=== PATIENT | female | born 1955 | race Caucasian/White ===

== ENCOUNTER → 2017-05-05 | Outpatient (CLI) | payer BC ==
--- NOTE | 2017-05-05 14:38 | MM ---
Reason for exam: clinical finding. Last mammogram was performed 3 years and 8 months ago. History: Patient is postmenopausal and has history of endometrial cancer at age 25. Family history of breast cancer in uncle. Indicated problem(s): pain in the right breast. Physical Findings: Nurse did not find any significant physical abnormalities on exam. MG 3D Diag Mammo W/Cad JESSE Bilateral CC and MLO view(s) were taken. Prior study comparison: September 16, 2013, bilateral digital screening mammo w/CAD. April 20, 2012, bilateral digital screening mammo w/CAD. There are scattered fibroglandular densities. Finding: There are grouped calcifications in the right breast. No significant changes in finding since September 16, 2013 and April 20, 2012. These results were verbally communicated with the patient and result sheet given to the patient on 05/05/17. ASSESSMENT: Benign, BI-RAD 2 RECOMMENDATION: Routine screening mammogram of both breasts in 1 year. Manage patient on a clinical basis.
== END | disposition home or self-care (01) ==
LOC: RADMAMWWP 13:32
PROVIDERS: ATTEND Family Medicine
DX: N64.4 Mastodynia (principal)
CPT/HCPCS: G0204; G0279

== ENCOUNTER 2017-06-24 14:22 | Emergency (ER) | payer BC ==
[2017-06-24 14:37] VITALS: BP 118/75; RESP 18; TEMP 97.8
--- NOTE | 2017-06-24 14:54 | ED ---
General Adult HPI - General Chief complaint: Extremity Injury, Lower Stated complaint: fall/foot injury Time Seen by Provider: 06/24/17 14:36 Source: patient, RN notes reviewed Mode of arrival: wheelchair Limitations: no limitations - History of Present Illness Initial comments: 61-year-old female presents to the emergency department with a chief complaint of left foot pain. Patient states she was walking through her yard and she tripped and hurt her left foot. Patient was able to have pain along the lateral aspect of foot. Patient states in the head. Patient states the fall. Patient states she did state that both knees in the way down. Patient states that she is not currently having any other symptoms. Patient denies any fever chills with this. Patient denies any recent fever, chills, shortness of breath, chest pain, back pain, abdominal pain, nausea vomiting, numbness or tingling, dysuria or hematuria, constipation or diarrhea, headaches or visual changes, or any other current symptoms. - Related Data Home Medications Medication Instructions Recorded Confirmed Citalopram Hydrobromide [CeleXA] 1 tab PO DAILY 11/08/15 06/24/17 LORazepam [Ativan] 1 tab PO Q8H 11/08/15 06/24/17 Montelukast [Singulair] 1 tab PO DAILY 11/08/15 06/24/17 Omeprazole [PriLOSEC] 1 tab PO DAILY 11/08/15 06/24/17 Previous Rx's Medication Instructions Recorded Doxycycline Monohydrate [Monodox] 100 mg PO Q12HR #20 cap 11/08/15 Allergies Allergy/AdvReac Type Severity Reaction Status Date / Time latex AdvReac Rash/Hives Verified 06/24/17 14:37 Penicillins AdvReac Itching Verified 06/24/17 14:37 Review of Systems ROS Statement: Those systems with pertinent positive or pertinent negative responses have been documented in the HPI. ROS Other: All systems not noted in ROS Statement are negative. Past Medical History Past Medical History: Asthma, GERD/Reflux, Hyperlipidemia Additional Past Medical History / Comment(s): arthritis History of Any Multi-Drug Resistant Organisms: None Reported Past Surgical History: Hysterectomy, Orthopedic Surgery, Tonsillectomy Past Psychological History: Depression Smoking Status: Current some day smoker Past Alcohol Use History: Occasional Past Drug Use History: None Reported General Exam - General Exam Comments Initial Comments: General: The patient is awake and alert, in no distress, and does not appear acutely ill. Neck: The neck is supple, there is no tenderness. Cardiovascular: There is a regular rate and rhythm. No murmur, rub or gallop is appreciated. Respiratory: Lungs are clear to auscultation, respirations are non-labored, breath sounds are equal. No wheezes, stridor, rales, or rhonchi. Musculoskeletal: Sensation intact with 2+ pulses. Left extremity. Full range of motion of left knee left ankle and left foot. Tenderness along the fourth and fifth metatarsals. 5 out of 5 muscle strength testing. Neurological: CN II-XII intact, There are no obvious motor or sensory deficits. Coordination appears grossly intact. Speech is normal. Skin: Skin is warm and dry and no rashes or lesions are noted. Psychiatric: Normal mood and affect. Limitations: no limitations Course Vital Signs 06/24/17 14:35 Temperature 97.8 F Pulse Rate 71 Respiratory 18 Rate Blood Pressure 118/75 O2 Sat by Pulse 96 Oximetry Medical Decision Making - Medical Decision Making 61-year-old female presents emergency Department chief complaint of left foot pain. At this time patient underwent x-rays. This time x-rays reviewed and negative. We discussed ice Motrin Tylenol. We discussed temporal salt than all patient's questions. She stated that she understood and she is agreeable to plan. All questions have been answered. She will be discharged home. - Radiology Data Radiology results: report reviewed, image reviewed Disposition Clinical Impression: Sprain of left foot Disposition: HOME SELF-CARE Condition: Stable Instructions: Foot Sprain (ED) Additional Instructions: Please use medication as discussed. Please follow up with family doctor if symptoms have not improved over the next two days. Please return to the emergency room if your symptoms increase or worsen or for any other concerns. Referrals: Hoa Stoner MD [Primary Care Provider] - 1-2 days Time of Disposition: 15:39
--- NOTE | 2017-06-24 15:33 | XR ---
EXAMINATION TYPE: XR foot complete LT DATE OF EXAM: 06/24/2017 COMPARISON: NONE HISTORY: Pain left foot slip and fall TECHNIQUE: Three-view left foot FINDINGS: No acute fractures are evident. Joint spaces appear preserved. Soft tissues are unremarkabl e. Follow-up exam can be performed 7-10 days from acute trauma for continued pain. IMPRESSION: 1. No acute osseous abnormality.
[2017-06-24 15:47] VITALS: PULSE 72
== END 2017-06-24 15:40 | disposition home or self-care (01) ==
LOC: EC 14:22
DX: S93.602A Unspecified sprain of left foot, initial encounter (principal); J45.909 Unspecified asthma, uncomplicated; K21.9 Gastro-esophageal reflux disease without esophagitis; F32.9 Major depressive disorder, single episode, unspecified; F17.200 Nicotine dependence, unspecified, uncomplicated; Z79.899 Other long term (current) drug therapy; Z88.0 Allergy status to penicillin; Z91.040 Latex allergy status; W01.0XXA Fall on same level from slipping, tripping and stumbling without subsequent striking against object, initial encounter; Y92.096 Garden or yard of other non-institutional residence as the place of occurrence of the external cause; Y93.01 Activity, walking, marching and hiking
CPT/HCPCS: 99283

== ENCOUNTER → 2019-01-14 | Outpatient (CLI) | payer BC ==
--- NOTE | 2019-01-14 09:06 | US ---
EXAMINATION TYPE: US abdomen complete DATE OF EXAM: 01/14/2019 COMPARISON: NONE CLINICAL HISTORY: 63-year-old female R10.13 Epigastric pain. Pt states change in bowel habits, lower ABD pain FINDINGS: EXAM MEASUREMENTS: Liver Length: 16.7 cm Gallbladder Wall: 0.2 cm CBD: 0.5 cm Spleen: 9.9 cm Right Kidney: 10.5 x 4.4 x 4.4 cm Left Kidney: 12.3 x 4.9 x 5.1 cm [place] [employer] Operator notes:Pt very gassy, technically difficult exam Pancreas: Body wnl, portions of the head and tail are obscured by overlying bowel gas Liver: Slightly heterogeneous, benign cyst right lobe= 1.2 x 1.2 x 1.4 cm Gallbladder: wnl Evidence for sonographic Rg's sign: No CBD: wnl Spleen: wnl Right Kidney: wnl, lower pole gassed out. No hydronephrosis. Left Kidney: No hydronephrosis Upper IVC: wnl Abd Aorta: wnl IMPRESSION: 1. Some technical limitations due to excessive bowel gas. 2. Slightly heterogeneous appearance to the liver could be on a technical basis or could reflect unde rlying nonspecific hepatocellular disease.
== END ==
LOC: RADUSWWP 07:03
PROVIDERS: ATTEND Family Medicine
DX: R93.2 Abnormal findings on diagnostic imaging of liver and biliary tract (principal)
CPT/HCPCS: 76700

== ENCOUNTER 2019-03-27 07:44 | Day surgery (SDC) | payer BC ==
[2019-03-22 12:00] VITALS: BMI 31.1
[~2019-03-27 07:44] MED LIST: LACTATED RINGERS 1,000 ML IV SCH; LIDOCAINE 1% 20 ML VIAL (10MG/ML) FOR IV START INTRADERMA PRN
--- NOTE | 2019-03-27 07:56 | P.GSHP ---
History of Present Illness H&P Date: 03/27/19 CHIEF COMPLAINT: Colon screen HISTORY OF PRESENT ILLNESS: The patient is a 63-year-old female who presents for colon screen. Lower endoscopy was offered for further evaluation and management. PAST MEDICAL HISTORY: Please see list. PAST SURGICAL HISTORY: Please see list. MEDICATIONS: Please see list. ALLERGIES: Please see list. SOCIAL HISTORY: No illicit drug use FAMILY HISTORY: No reports of Crohn disease or ulcerative colitis. REVIEW OF ORGAN SYSTEMS: CONSTITUTIONAL: No reports of fevers or chills. PHYSICAL EXAM: VITAL SIGNS: Stable GENERAL: Well-developed pleasant in no acute distress. HEENT: No scleral icterus. Extraocular movements grossly intact. Moist buccal mucosa. NECK: Supple without lymphadenopathy. CHEST: Unlabored respirations. Equal bilateral excursions. CARDIOVASCULAR: Regular rate and rhythm. Distal 2+ pulses. ABDOMEN: Soft, nontender, nondistended. MUSCULOSKELETAL: No clubbing, cyanosis, or edema. ASSESSMENT: 1. Colon screen. PLAN: 1. Recommend proceeding with a lower endoscopy Past Medical History Past Medical History: Asthma, Cancer, GERD/Reflux, Hyperlipidemia, Hypertension, Osteoarthritis (OA) Additional Past Medical History / Comment(s): hx. cervical cancer 40 yrs. ago, change in bowel habits,constipation over last 6 months History of Any Multi-Drug Resistant Organisms: None Reported Past Surgical History: Hysterectomy, Joint Replacement, Orthopedic Surgery, Tonsillectomy Additional Past Surgical History / Comment(s): ORIF left wrist, left hip replaced, arthroscopy knee Past Anesthesia/Blood Transfusion Reactions: Previous Problems w/ Anesthesia Additional Past Anesthesia/Blood Transfusion Reaction / Comment(s): states needs minimal anesthesia Smoking Status: Current every day smoker Medications and Allergies Home Medications Medication Instructions Recorded Confirmed Type Citalopram Hydrobromide [CeleXA] 20 mg PO DAILY 11/08/15 03/22/19 History LORazepam [Ativan] 0.5 mg PO Q8H PRN 11/08/15 03/22/19 History Montelukast [Singulair] 10 mg PO DAILY 11/08/15 03/22/19 History Omeprazole [PriLOSEC] 20 mg PO DAILY 11/08/15 03/22/19 History Albuterol Inhaler [Ventolin Hfa 1 - 2 puff INHALATION RT-Q6H PRN 03/22/19 03/22/19 History Inhaler] Bp Med(Unknown Name & Dose) 1 tab PO HS 03/22/19 03/22/19 History buPROPion [Wellbutrin] 75 mg PO DAILY 03/22/19 03/22/19 History Allergies Allergy/AdvReac Type Severity Reaction Status Date / Time latex AdvReac Rash/Hives Verified 03/22/19 10:57
[2019-03-27 08:09] VITALS: TEMP 97.5
[2019-03-27] MEDS ORDERED: PROPOFOL 10 MG/ML 20 ML VIAL IV ONE (08:34)
--- NOTE | 2019-03-27 09:01 | P.PCN ---
Date of Procedure: 03/27/19 Description of Procedure: PREOPERATIVE DIAGNOSIS: Colonoscopy screening. Family history of colon cancer POSTOPERATIVE DIAGNOSIS: Colonoscopy screening. Family history of colon cancer OPERATION: Colonoscopy to the ileocecal valve and appendiceal orifice. SURGEON: Urszula Cano MD. ANESTHESIA: MAC. INDICATIONS: The patient is a 63-year-old female who presents for colonoscopy screening. Last colonoscopy 10 years ago. Benefits and risks were described and informed consent was obtained. DESCRIPTION OF PROCEDURE: The patient had undergone Suprep. She had been brought into the operating room and laid in the left lateral decubitus position. After adequate intravenous sedation, the rectum was examined with 2% lidocaine jelly. No external hemorrhoids were encountered. The rectal tone was within normal limits. No lesions were palpated in the rectal vault. An Olympus colonoscope was advanced u ntil the ileocecal valve and appendiceal orifice were clearly viewed. The prep was excellent with clear visualization of the mucosal folds. The scope was removed with visualization of each mucosal fold. No scattered diverticulosis was encountered. No colonic polyps were found. No evidence of focal colitis was found. Retroflexion of the scope demonstrated grade 1 internal hemorrhoids without active bleeding or inflammation. The colon was desufflated. The patient had tolerated the procedure well. Withdrawal time was over 6 minutes. FINDINGS: Aronchick preparation quality scale 1 (1-5) Internal hemorrhoids, grade 1 No external prolapsed hemorrhoids. No arteriovenous malformations. No adenomatous polyps. No focal colitis. No sigmoid diverticulosis RECOMMENDATIONS: Lower endoscopy in 5 years, 2023 Plan - Discharge Summary Discharge Rx Participant: Yes New Discharge Prescriptions: No Action Omeprazole [PriLOSEC] 20 mg PO DAILY Montelukast [Singulair] 10 mg PO DAILY LORazepam [Ativan] 1 mg PO Q8H PRN PRN Reason: Anxiety Citalopram Hydrobromide [CeleXA] 20 mg PO DAILY Albuterol Inhaler [Ventolin Hfa Inhaler] 1 - 2 puff INHALATION RT-Q6H PRN PRN Reason: Dyspnea buPROPion [Wellbutrin] 100 mg PO DAILY Cyclobenzaprine [Flexeril] 5 mg PO HS PRN PRN Reason: Muscle Spasm Pravastatin Sodium [Pravachol] 20 mg PO HS Discharge Medication List Citalopram Hydrobromide [CeleXA] 20 mg PO DAILY 11/08/15 [History] LORazepam [Ativan] 1 mg PO Q8H PRN 11/08/15 [History] Montelukast [Singulair] 10 mg PO DAILY 11/08/15 [History] Omeprazole [PriLOSEC] 20 mg PO DAILY 11/08/15 [History] Albuterol Inhaler [Ventolin Hfa Inhaler] 1 - 2 puff INHALATION RT-Q6H PRN 02/28 02/15 [History] buPROPion [Wellbutrin] 100 mg PO DAILY 03/22/19 [History] Cyclobenzaprine [Flexeril] 5 mg PO HS PRN 03/27/19 [History] Pravastatin Sodium [Pravachol] 20 mg PO HS 03/27/19 [History] Follow up Appointment(s)/Referral(s): Urszula Cano MD [STAFF PHYSICIAN] - As Needed Patient Instructions/Handouts: *[facility] - (Anesthesia) Endoscopy Discharge Instructions, Colonoscopy (DC) Activity/Diet/Wound Care/Special Instructions: Repeat colonoscopy 5 years, 2023 Discharge Disposition: HOME SELF-CARE
[2019-03-27 09:17] VITALS: BP 122/78; PULSE 57; RESP 18
== END 2019-03-27 09:38 | disposition home or self-care (01) ==
LOC: ORWHC2ENDO 07:44
PROVIDERS: ATTEND Surgery Plastic and Reconstructive Surgery
DX: K59.00 Constipation, unspecified (principal); J45.909 Unspecified asthma, uncomplicated; K64.0 First degree hemorrhoids; K21.9 Gastro-esophageal reflux disease without esophagitis; E78.5 Hyperlipidemia, unspecified; I10 Essential (primary) hypertension; M19.90 Unspecified osteoarthritis, unspecified site; F17.200 Nicotine dependence, unspecified, uncomplicated; Z85.41 Personal history of malignant neoplasm of cervix uteri; Z91.040 Latex allergy status; Z80.0 Family history of malignant neoplasm of digestive organs
CPT/HCPCS: 45378; J2704

== ENCOUNTER → 2019-05-20 | Outpatient (CLI) | payer BC ==
--- NOTE | 2019-05-21 13:19 | MM ---
Reason for exam: screening (asymptomatic). Last mammogram was performed 2 years ago. History: Patient is postmenopausal and has history of endometrial cancer at age 25. Family history of breast cancer in uncle at age 60. Physical Findings: A clinical breast exam by your physician is recommended on an annual basis and results should be correlated with mammographic findings. MG 3D Screening Mammo W/Cad Bilateral CC and MLO view(s) were taken. Prior study comparison: May 05, 2017, bilateral MG 3d diag mammo w/cad JESSE. September 16, 2013, bilateral digital screening mammo w/CAD. There are scattered fibroglandular densities. Benign appearing bilateral calcifications. No suspicious abnormality. No significant changes when compared with prior studies. ASSESSMENT: Benign, BI-RAD 2 RECOMMENDATION: Routine screening mammogram of both breasts in 1 year.
== END | disposition home or self-care (01) ==
LOC: RADMAMWWP 06:58
PROVIDERS: ATTEND Family Medicine
DX: Z12.31 Encounter for screening mammogram for malignant neoplasm of breast (principal)
CPT/HCPCS: 77063; 77067

== ENCOUNTER → 2019-07-23 | Outpatient (CLI) | payer BC ==
--- NOTE | 2019-07-23 16:21 | XR ---
EXAMINATION TYPE: XR ankle limited LT DATE OF EXAM: 07/23/2019 CLINICAL HISTORY: Pain and swelling over the medial malleolus. TECHNIQUE: Frontal and lateral images of the left ankle are obtained. COMPARISON: None. FINDINGS: There is no acute fracture/dislocation evident in the left ankle. Talar dome appears intac t and unremarkable. The ankle mortise appears within normal limits. Tears focal soft tissue swelling around the mid and low ankle joint overlying the medial malleolus and region of the deltoid ligament. No radiopaque foreign body. IMPRESSION: Medial ankle soft tissue swelling without acute fracture or dislocation in the left ankle . MRI could assess for ligamentous or tendinous injury.
== END | disposition home or self-care (01) ==
LOC: RADXRMAIN 14:35
PROVIDERS: ATTEND Family Medicine
DX: M25.472 Effusion, left ankle (principal)

== ENCOUNTER → 2019-12-02 | Outpatient (CLI) | payer OTHER ==
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
== END | disposition home or self-care (01) ==
LOC: RADCTMAIN 11:24
PROVIDERS: ATTEND Family Medicine
DX: R51 Headache (principal)
CPT/HCPCS: 70470; Q9967

== ENCOUNTER → 2020-11-09 | Outpatient (CLI) | payer MEDICARE, BC ==
--- NOTE | 2020-11-11 09:49 | MM ---
Reason for exam: screening (asymptomatic). Last mammogram was performed 1 year and 6 months ago. History: Patient is postmenopausal and has history of endometrial cancer at age 25. Family history of breast cancer in uncle at age 60. Physical Findings: A clinical breast exam by your physician is recommended on an annual basis and results should be correlated with mammographic findings. MG 3D Screening Mammo W/Cad Bilateral CC and MLO view(s) were taken. Prior study comparison: May 20, 2019, bilateral MG 3d screening mammo w/cad. May 05, 2017, bilateral MG 3d diag mammo w/cad JESSE. There are scattered fibroglandular densities. Tiny grouped punctate calcifications on the right are unchanged. No significant changes when compared with prior studies. ASSESSMENT: Negative, BI-RAD 1 RECOMMENDATION: Routine screening mammogram of both breasts in 1 year.
== END | disposition home or self-care (01) ==
LOC: RADMAMWWP 15:22
PROVIDERS: ATTEND Family Medicine
DX: Z12.31 Encounter for screening mammogram for malignant neoplasm of breast (principal)
CPT/HCPCS: 77063; 77067

== ENCOUNTER → 2020-11-30 | Outpatient (CLI) | payer BC ==
--- NOTE | 2020-11-30 15:24 | BD ---
EXAMINATION TYPE: Axial Bone Density DATE OF EXAM: 11/30/2020 COMPARISON: 04.20.2012 CLINICAL HISTORY: 65 YR OLD FEMALE....ICD-10 CODE: Z78.0 MENOPAUSAL STATE Height: 68.5 Weight: 225 FRAX RISK QUESTIONS: Glucocorticoids (More than 3mos): YES (Ex: prednisone, prednisolone, methylprednisolone, dexamethasone, and hydrocortisone). History of Fracture in Adulthood: YES Current Tobacco Use: YES RISK FACTORS HISTORY OF: HX OF FX TO STERNUM, KNEE, CLAVICLE AT AGE 63 History of Wrist Fracture: LT WRIST FX...AT AGE 63 Surgery to LT HIP...THR Postmenopausal woman: HYST AT AGE 25, UNSURE OF WHEN MENOPAUSE HAPPENED Hyperparathyroidism: NO Adrenal Insufficiency: NO MEDICATIONS: Prednisone or other steroids: YES, FOR ASTHMA PREDNISONE AND INHALERS FOR MANY YRS Additional Medications: ATIVAN, CHANTAX FOR SMOKING , REFLUX MEDS, VIT D AND ZINC, CALCIUM , BP MEDS Additional History: REFLUX, EXAM MEASUREMENTS: Bone mineral densitometry was performed using the [employer] System. Bone mineral density as measured about the Lumbar spine is: ----- L1-L4(G/cm2): 1.170 T Score Values are as follows: ----- L1: -1.1 ----- L2: -0.3 ----- L3: 0.5 ----- L4: 0.1 ----- L1-L4: -0.1 Bone mineral density has: Increased 6.4% SINCE STUDY OF 04.20.2012 Bone mineral density about the R hip (g/cm2): 0.879 T Score values are as follows: -----R Neck: -1.1 -----R Total: -1.0 Bone mineral density has: Decreased -10.5% SINCE THE STUDY OF 04.20.2012 FRAX%s: THERE IS A 19.8% CHANCE FOR A MAJOR OSTEOPOROTIC FX AND A 3.0% FOR HIP......PROBABILITY FOR FX IN 10 YRS TIME IMPRESSION: No evidence for osteoporosis or osteopenia. NOTE: T-SCORE=SD OF THE YOUNG ADULT MEAN.
== END | disposition home or self-care (01) ==
LOC: RADBDWWP 12:23
PROVIDERS: ATTEND Family Medicine
DX: Z78.0 Asymptomatic menopausal state (principal)
CPT/HCPCS: 77080

== ENCOUNTER 2021-09-30 14:43 | Emergency (ER) | payer MEDICARE, BC ==
--- NOTE | 2021-09-30 16:48 | ED ---
URI HPI - General Chief Complaint: Upper Respiratory Infection Stated Complaint: Covid +, wants BAM Time Seen by Provider: 09/30/21 16:21 Source: patient, RN notes reviewed Mode of arrival: ambulatory Limitations: no limitations - History of Present Illness Initial Comments: Patient is a 65-year-old female with history of asthma, hypertension, presenting to the emergency department requesting monoclonal antibodies. Patient tested positive for: Arash 4 days ago, her symptoms began about 7 days ago. She's been having the typical viral type symptoms just cough, congestion, body aches, fatigue and chills. She has been taking Tylenol for his symptoms. She has not been vaccinated against Covid. She denies any chest pain or shortness of breath. She's been occasionally using her inhaler. Patient has no further complaints today. Her vital signs are stable upon arrival. - Related Data Home Medications Medication Instructions Recorded Confirmed Acetaminophen-Codeine 300-30mg 1 tab PO HS PRN 09/30/21 09/30/21 [Tylenol w/codeine #3] Allergies Allergy/AdvReac Type Severity Reaction Status Date / Time latex AdvReac Rash/Hives Verified 09/30/21 18:14 Review of Systems ROS Statement: Those systems with pertinent positive or pertinent negative responses have been documented in the HPI. ROS Other: All systems not noted in ROS Statement are negative. Past Medical History Past Medical History: Asthma, Cancer, GERD/Reflux, Hyperlipidemia, Hypertension, Osteoarthritis (OA) Additional Past Medical History / Comment(s): hx. cervical cancer 40 yrs. ago, change in bowel habits,constipation over last 6 months History of Any Multi-Drug Resistant Organisms: None Reported Past Surgical History: Hysterectomy, Joint Replacement, Orthopedic Surgery, Tonsillectomy Additional Past Surgical History / Comment(s): ORIF left wrist, left hip replaced, arthroscopy knee Past Anesthesia/Blood Transfusion Reactions: Previous Problems w/ Anesthesia Additional Past Anesthesia/Blood Transfusion Reaction / Comment(s): states needs minimal anesthesia Past Psychological History: Depression Smoking Status: Never smoker Past Alcohol Use History: Occasional Past Drug Use History: None Reported General Exam - General Exam Comments Initial Comments: GENERAL: Patient is well-developed and well-nourished. Patient is nontoxic and in no acute distress. HEAD: Atraumatic, normocephalic. EYES: Pupils equal round and reactive to light, extraocular movements intact, sclera anicteric, conjunctiva are normal. Eyelids were unremarkable. ENT: Oropharynx clear without exudates. Moist mucous membranes. NECK: Normal range of motion, supple without lymphadenopathy or JVD. LUNGS: Unlabored respirations. Breath sounds clear to auscultation bilaterally and equal. No wheezes rales or rhonchi. HEART: Regular rate and rhythm without murmurs, rubs or gallops. ABDOMEN: Soft, nontender, normoactive bowel sounds. No guarding, no rebound. No masses appreciated. MUSCULOSKELETAL: Normal extremities with adequate strength and normal range of motion, no pitting or edema. No clubbing or cyanosis. NEUROLOGICAL: Patient is alert and oriented x 3. SKIN: Warm, Dry, normal turgor, no rashes or lesions noted. Limitations: no limitations Course Vital Signs 09/30/21 14:48 Temperature 98.6 F Pulse Rate 78 Respiratory 20 Rate Blood Pressure 143/75 O2 Sat by Pulse 94 L Oximetry Medical Decision Making - Medical Decision Making Patient is a 65-year-old female history of asthma, hypertension, presenting for monoclonal antibodies. Patient tested positive for Covid 4 days ago, symptoms began 7 days ago. She has not been vaccinated against Covid. Her exam is unremarkable, vital signs are stable. She did receive monoclonal antibodies without adverse side effects. Patient can continue to use her inhaler as needed for any shortness of breath or cough. She can continue with Tylenol for body aches and chills. She is stable for discharge. Disposition Clinical Impression: COVID-19 Disposition: HOME SELF-CARE Condition: Stable Instructions (If sedation given, give patient instructions): Coronavirus Disease 2019 (COVID-19) Additional Instructions: Please return to the Emergency Department if symptoms worsen or any other concerns. Recommend alternating between Tylenol and ibuprofen for bodyaches, fever or chills. Increase your fluid intake. Continue with your inhaler as needed for shortness of breath or cough. Follow-up with your primary care. Is patient prescribed a controlled substance at d/c from ED?: No Referrals: Raul Philippe MD [Primary Care Provider] - 1-2 days Time of Disposition: 19:15
[2021-09-30] MEDS ORDERED: SODIUM CHLORIDE 0.9% 50 ML IVPB ONE (17:00)
[2021-09-30] MEDS ORDERED: SOTROVIMAB (EUA) 500 MG in SODIUM CHLORIDE 0.9% 100 ML IVPB ONE (17:00)
[2021-09-30 19:28] VITALS: RESP 18
[2021-09-30 19:29] VITALS: BP 127/58; PULSE 60; TEMP 98
== END 2021-09-30 19:29 | disposition home or self-care (01) ==
LOC: EC 14:43
DX: U07.1 COVID-19 (principal); J45.909 Unspecified asthma, uncomplicated; K21.9 Gastro-esophageal reflux disease without esophagitis; E78.5 Hyperlipidemia, unspecified; I10 Essential (primary) hypertension; M19.90 Unspecified osteoarthritis, unspecified site; F32.A Depression, unspecified; Z91.040 Latex allergy status; Z85.41 Personal history of malignant neoplasm of cervix uteri; Z90.710 Acquired absence of both cervix and uterus; Z96.642 Presence of left artificial hip joint
CPT/HCPCS: 99283; 96360; Q0247

== ENCOUNTER → 2022-11-21 | Outpatient (CLI) | payer MEDICARE, BC ==
--- NOTE | 2022-11-22 08:47 | MM ---
Reason for Exam: Screening (asymptomatic). Last mammogram was performed 2 year(s) and 0 month(s) ago. Patient History: Menarche at age 14. First Full-Term at age 23. Hysterectomy at age 25. Postmenopausal. Maternal uncle had breast cancer, age 60. Risk Values: Abiola 5 year model risk: 1.4%. NCI Lifetime model risk: 4.8%. Prior Study Comparison: 05/05/2017 Bilateral Diagnostic Mammogram, [facility]. 05/20/2019 Bilateral Screening Mammogram, [facility]. 11/09/2020 Bilateral Screening Mammogram, [facility]. Tissue Density: There are scattered fibroglandular densities. Findings: Analyzed By CAD. There is no suspicious group of microcalcifications or new suspicious mass in either breast. Overall Assessment: Negative, BI-RAD 1 Management: Screening Mammogram of both breasts in 1 year. A clinical breast exam by your physician is recommended on an annual basis and results should be correlated with mammographic findings. Electronically signed and approved by: Anthony Michaels M.D. Radiologis
== END | disposition home or self-care (01) ==
LOC: RADMAMWWP 11:33
PROVIDERS: ATTEND Family Medicine
DX: Z12.31 Encounter for screening mammogram for malignant neoplasm of breast (principal); Z78.0 Asymptomatic menopausal state; Z80.3 Family history of malignant neoplasm of breast
CPT/HCPCS: 77063; 77067

== ENCOUNTER → 2023-02-24 | Outpatient (CLI) | payer MEDICARE, BC ==
--- NOTE | 2023-02-24 11:59 | CA ---
Transthoracic Echo Report Name: Sulema Pickett Age: 67 Gender: F : 1955 Exam Date: 02/24/2023 10:03 Exam Location: [place] [facility] Ht (in): 70 Wt (lb): 230 Ordering Physician: Raul Philippe MD Attending/Referring Phys: Jose Martin ROLDAN Junk Dealer Daniella Vargas RDCS Procedure CPT: Indications: R94.31 Cardiac Hx: Technical Quality: Fair Contrast 1: Total Dose (mL): Contrast 2: Total Dose (mL): MEASUREMENTS (Male / Female) Normal Values 2D ECHO LV Diastolic Diameter PLAX 4.8 cm 4.2 - 5.9 / 3.9 - 5.3 cm LV Systolic Diameter PLAX 3.3 cm IVS Diastolic Thickness 1.4 cm 0.6 - 1.0 / 0.6 - 0.9 cm LVPW Diastolic Thickness 1.1 cm 0.6 - 1.0 / 0.6 - 0.9 cm LV Relative Wall Thickness 0.5 RV Internal Dim ED PLAX 3.7 cm LA Volume 58.9 cm??? 18 - 58 / 22 - 52 cm??? M-MODE Aortic Root Diameter MM 3.5 cm LA Systolic Diameter MM 4.4 cm LA Ao Ratio MM 1.2 AV Cusp Separation MM 2.3 cm DOPPLER AV Peak Velocity 168.5 cm/s AV Peak Gradient 11.4 mmHg AV Mean Velocity 105.1 cm/s AV Mean Gradient 5.1 mmHg AV Velocity Time Integral 30.4 cm LVOT Peak Velocity 124.0 cm/s LVOT Peak Gradient 6.2 mmHg LVOT Velocity Time Integral 23.4 cm MV Area PHT 2.8 cm??? Mitral E Point Velocity 56.4 cm/s Mitral A Point Velocity 92.4 cm/s Mitral E to A Ratio 0.6 MV Deceleration Time 270.3 ms MV E' Velocity 6.3 cm/s Mitral E to MV E' Ratio 8.9 TR Peak Velocity 252.8 cm/s TR Peak Gradient 25.6 mmHg Right Ventricular Systolic Press 29.3 mmHg FINDINGS Left Ventricle Moderately increased left ventricular wall thickness. Left ventricular cavity size normal. Normal left ventricular systolic function with no obvious regional wall motion abnormalities. Left ventricular ejection fraction is estimated at 55-60 %. Right Ventricle Mild right ventricular dilatation. Right ventricular systolic pressure within normal limits. Right Atrium Normal right atrial size. Left Atrium Mildly increased left atrial volume. Mildly increased left atrial area. Mitral Valve Structurally normal mitral valve. No mitral stenosis. Mild mitral regurgitation. Aortic Valve Trileaflet aortic valve. No aortic valve stenosis or regurgitation. Tricuspid Valve Structurally normal tricuspid valve. Mild tricuspid regurgitation. Pulmonic Valve Trace pulmonic regurgitation. Pericardium No pericardial effusion. Aorta Normal size aortic root and proximal ascending aorta. CONCLUSIONS Normal LV systolic function Previewed by: Dr. Johnathon Tijerina MD (Electronically Signed) Final Date: 24 February 2023 11:59
--- NOTE | 2023-02-24 19:49 | CA ---
Stress Echo Report Sulema Pickett Age: 67 Gender: F : 1955 Exam Date: 02/24/2023 09:46 Exam Location: [place] Stress Ht (in): 70 Wt (lb): 230 Ordering Physician: Raul Philippe MD Referring Physician: Jose Martin ROLDAN Compression Molding Machine Setter: TIMOTHY Technologist Procedure CPT: Indication: R94.31 ICD-9 Codes: Rhythm: Patient History: Cardiac Medications: Medications in past 24 hours: Contrast: Stress Results Protocol: Ced Total dose(mL): Exercise Duration (min:sec): 5:[address] Depression (mm): Angina Score: Cruz Score: METS: 7.1 Resting HR: 77 Resting BP: 135 / 65 Peak HR: 131 Peak BP: / 102 Max Predicted HR: 153 86 % Max Predicted HR Target HR: 130 Double Product: Stress Summary: BP Response: Reason for Termination: Reached target heart rate or work-load Cardiac Symptoms: very short of breath/dizzy ECG Analysis Resting ECG: Stress ECG: Arrhythmia: Echo Analysis Resting Echo: Peak Echo Analysis: MEASUREMENTS (Male/Female) Normal Values CONCLUSIONS Excellent exercise tolerance Normal EKG and echo in response to exercise Dr. Johnathon Tijerina MD (Electronically Signed) Final Date: 24 February 2023 19:48
== END | disposition home or self-care (01) ==
LOC: RADNMMAIN 08:58
PROVIDERS: ATTEND Family Medicine
DX: R94.31 Abnormal electrocardiogram [ECG] [EKG] (principal); R42 Dizziness and giddiness
CPT/HCPCS: 93306; 93351

== ENCOUNTER 2023-08-07 11:15 | Emergency (ER) | payer MEDICARE, BC ==
[2023-08-07 11:55] LABS: Basophils % (A) 0 %; Eosinophils # (A) 0.2 k/uL (0-0.7); Eosinophils % (A) 3 %; HCT 43.2 % (34.0-46.0); HGB 14.1 gm/dL (11.4-16.0); Lymphocytes # (A) 2.2 k/uL (1.0-4.8); Lymphocytes % (A) 39 %; MCH 32.8 pg (25.0-35.0); MCHC 32.7 g/dL (31.0-37.0); MCV 100.5 fL (80.0-100.0); Mean Platelet Volume 8.3; Monocytes # (A) 0.3 k/uL (0-1.0); Monocytes % (A) 5 %; Neutrophils # (A) 2.9 k/uL (1.3-7.7); Neutrophils % (A) 51 %; Platelet Count 213 k/uL (150-450); RDW 12.8 % (11.5-15.5); WBC 5.8 k/uL (3.8-10.6)
[2023-08-07 12:11] LABS: INR 0.9 (<1.2); Partial Thromboplastin Time 22.4 sec (22.0-30.0); Prothrombin Time 9.6 sec (9.0-12.0)
[2023-08-07 12:13] LABS: ALT 18 U/L (4-34); AST 27 U/L (14-36); African American GFR (CKD) >90 (>60 ml/min/1.73 sqM); Albumin 3.9 g/dL (3.5-5.0); Alkaline Phosphatase 94 U/L (38-126); Anion Gap 8 mmol/L; Blood Urea Nitrogen 13 mg/dL (7-17); Calcium 9.7 mg/dL (8.4-10.2); Carbon Dioxide 22 mmol/L (22-30); Chloride 109 mmol/L (98-107); Glucose 90 mg/dL (74-99); Non-African American GFR(CKD) >90 (>60 ml/min/1.73 sqM); Potassium 4.4 mmol/L (3.5-5.1); Sodium 139 mmol/L (137-145); Total Bilirubin 0.3 mg/dL (0.2-1.3); Total Protein 6.4 g/dL (6.3-8.2)
--- NOTE | 2023-08-07 12:17 | XR ---
EXAMINATION TYPE: XR chest 2V DATE OF EXAM: 08/07/2023 11:59 AM COMPARISON: None TECHNIQUE: XR chest 2V Frontal and lateral views of the chest. CLINICAL INDICATION:Female, 67 years old with history of Chest Pain; FINDINGS: Lungs/Pleura: There is no evidence of pleural effusion, focal consolidation, or pneumothorax. Senesc ent parenchymal change. Pulmonary vascularity: Unremarkable. Heart/mediastinum: Cardiomediastinal silhouette is unremarkable. Musculoskeletal: No acute osseous pathology. Mild degenerative changes of the thoracic spine. IMPRESSION: No acute cardiopulmonary disease/process.
[2023-08-07] MEDS ORDERED: MAG HYDROX/AL HYDROX/SIMETH 30 ML, HYOSCYAMINE ELIXIR 10 ML, LIDOCAINE 2% GLYDO JELLY 1... PO STA ×3 (15:18)
--- NOTE | 2023-08-07 15:20 | ED ---
Chest Pain HPI - General Chief Complaint: Chest Pain Stated Complaint: Chest Pain Time Seen by Provider: 08/07/23 13:51 Source: patient Mode of arrival: ambulatory Limitations: no limitations - History of Present Illness Initial Comments: 67-year-old female sent in to the ED with a chief complaint of chest pain. Patient states that she was sleeping when she woke up with this chest pain approximately 4 AM this morning. Since then reports that she has had constant pain. Pain is midsternal. Pain is a 3 out of 10 in severity. Pain is a dull ache in nature. Pain does not radiate. No exacerbating or alleviating factors. Associated nausea. Denies shortness of breath. No abdominal pain. She had an echo and a stress echo in January 2023 that showed normal left ventricular function and normal echo in response to stress. Patient has no other complaints at this time. - Related Data Home Medications Medication Instructions Recorded Confirmed Albuterol Sulfate [Albuterol 1 - 2 puff PO RT-Q6H PRN 08/07/23 08/07/23 Sulfate Hfa] LORazepam [Ativan] 1 mg PO DAILY PRN 08/07/23 08/07/23 Loratadine [Claritin] 10 mg PO HS PRN 08/07/23 08/07/23 Montelukast [Singulair] 10 mg PO DAILY 08/07/23 08/07/23 buPROPion SR [Wellbutrin SR] 100 mg PO DAILY 08/07/23 08/07/23 Allergies Allergy/AdvReac Type Severity Reaction Status Date / Time ezetimibe [From Zetia] AdvReac DIZZINESS Verified 08/07/23 14:17 latex AdvReac Rash/Hives Verified 08/07/23 14:13 Review of Systems ROS Statement: Those systems with pertinent positive or pertinent negative responses have been documented in the HPI. ROS Other: All systems not noted in ROS Statement are negative. Past Medical History Past Medical History: Asthma, Cancer, GERD/Reflux, Hyperlipidemia, Hypertension, Osteoarthritis (OA) Additional Past Medical History / Comment(s): hx. cervical cancer 40 yrs. ago, change in bowel habits,constipation over last 6 months History of Any Multi-Drug Resistant Organisms: None Reported Past Surgical History: Hysterectomy, Joint Replacement, Orthopedic Surgery, Tonsillectomy Additional Past Surgical History / Comment(s): ORIF left wrist, left hip replaced, arthroscopy knee Past Anesthesia/Blood Transfusion Reactions: Previous Problems w/ Anesthesia Additional Past Anesthesia/Blood Transfusion Reaction / Comment(s): states needs minimal anesthesia Past Psychological History: Depression Smoking Status: Never smoker Past Alcohol Use History: Occasional Past Drug Use History: None Reported General Exam Limitations: no limitations General appearance: alert, in no apparent distress Eye exam: Present: normal appearance Neck exam: Present: normal inspection Respiratory exam: Present: normal lung sounds bilaterally Cardiovascular Exam: Present: regular rate, normal rhythm GI/Abdominal exam: Present: soft Extremities exam: Present: normal inspection Neurological exam: Present: alert, oriented X3 Skin exam: Present: warm, dry Course Vital Signs 08/07/23 08/07/23 08/07/23 11:18 14:21 15:55 Temperature 97.7 F Pulse Rate 71 63 69 Respiratory 18 16 16 Rate Blood Pressure 164/95 144/97 155/97 O2 Sat by Pulse 97 98 95 Oximetry Chest Pain MDM - MDM Was pt. sent in by a medical professional or institution (, PA, DATA ENTRY TECHNICIAN, urgent care, hospital, or half-way...) When possible be specific @ -No Did you speak to anyone other than the patient for history (EMS, parent, family, police, friend...)? What history was obtained from this source @ -No Did you review nursing and triage notes (agree or disagree)? Why? @ -I reviewed and agree with nursing and triage notes Were old charts reviewed (outside hosp., previous admission, EMS record, old EKG, old radiological studies, urgent care reports/EKG's, half-way records)? Report findings @ -Prior testing reviewed. For further details please see HPI. Differential Diagnosis (chest pain, altered mental status, abdominal pain women, abdominal pain men, vaginal bleeding, weakness, fever, dyspnea, syncope, headache, dizziness, GI bleed, back pain, seizure, CVA, palpatations, mental health, musculoskeletal)? @ -Differential Chest Pain: Stable Angina, Unstable Angina, STEMI, NSTEMI Aortic Dissection, Pneumothorax, Musculoskeletal, Esophageal Spasm GERD, Cholecystitis, Pancreatitis, Zoster, this is not meant to be an all-inclusive list. EKG interpreted by me (3pts min.). @ -EKG shows a sinus rhythm at [address] or T-wave changes. DE 184, QRS 92, QT/QTC 397/394. X-rays interpreted by me (1pt min.). @ -Chest x-ray interpreted by me showing no acute process. CT interpreted by me (1pt min.). @ -None done U/S interpreted by me (1pt. min.). @ -None done What testing was considered but not performed or refused? (CT, X-rays, U/S, labs)? Why? @ -None What meds were considered but not given or refused? Why? @ -None Did you discuss the management of the patient with other professionals (professionals i.e. , AQUILINO, DATA ENTRY TECHNICIAN, lab, RT, psych nurse, forensic social worker, insurance verify rep, teacher, special technical operations officer, caser shoe parts)? Give summary @ -No Was smoking cessation discussed for >3mins.? @ -No Was critical care preformed (if so, how long)? @ -No Were there social determinants of health that impacted care today? How? (Ho melessness, low income, unemployed, alcoholism, drug addiction, transportation, low edu. Level, literacy, decrease access to med. care, longterm, rehab)? @ -No Was there de-escalation of care discussed even if they declined (Discuss DNR or withdrawal of care, Hospice)? DNR status @ -No What co-morbidities impacted this encounter? (DM, HTN, Smoking, COPD, CAD, Cancer, CVA, ARF, Chemo, Hep., AIDS, mental health diagnosis, sleep apnea, morbid obesity)? @ -None Was patient admitted / discharged? Hospital course, mention meds given and route, prescriptions, significant lab abnormalities, going to OR and other pertinent info. @ -Discharge 57-year-old female presenting to the ED with onset of midsternal chest pain that woke her up at 4 AM this morning. Pain is Constant nature with no radiation. Associated nausea. At this time, laboratory studies including troponin 2, CBC, CMP, UA unremarkable. EKG showed no acute ST or T-wave changes. She was provided a GI cocktail. Patient reports that this significantly improved her pain. Reported pain previously at a 3-4 and now rates it at a 1. Patient was recommended observation to rule out ACS however at this time patient declined. Patient reported that she will return with any new or worsening symptoms. Aquilino miller discharged home in stable condition. Discussed return precautions with patient who verbalizes agreement. Undiagnosed new problem with uncertain prognosis? @ -No Drug Therapy requiring intensive monitoring for toxicity (Heparin, Nitro, Insulin, Cardizem)? @ -No Were any procedures done? @ -No Diagnosis/symptom? @ -Chest pain Acute, or Chronic, or Acute on Chronic? @ -Acute Uncomplicated (without systemic symptoms) or Complicated (systemic symptoms)? @ -Uncomplicated Side effects of treatment? @ -No Exacerbation, Progression, or Severe Exacerbation? @ -No Poses a threat to life or bodily function? How? (Chest pain, [place], [place], pneumonia, PE, COPD, DKA, ARF, appy, cholecystitis, CVA, Diverticulitis, Homicidal, Suicidal, threat to staff... and all critical care pts) @ -No Disposition Clinical Impression: Chest pain Disposition: HOME SELF-CARE Condition: Good Instructions (If sedation given, give patient instructions): Chest Pain (ED) Additional Instructions: Please return to the Emergency Department if symptoms worsen or any other concerns. Please follow up with cardiology. Is patient prescribed a controlled substance at d/c from ED?: No Referrals: Raul Philippe MD [Primary Care Provider] - 1-2 days Johnathon Tijerina MD [STAFF PHYSICIAN] - 1-2 days Time of Disposition: 15:35
[2023-08-07 16:34] VITALS: BP 150/82; PULSE 82; RESP 18; TEMP 97.6
== END 2023-08-07 16:33 | disposition home or self-care (01) ==
LOC: EC 11:15
DX: R07.89 Other chest pain (principal); I10 Essential (primary) hypertension; J45.909 Unspecified asthma, uncomplicated; F32.A Depression, unspecified; Z79.899 Other long term (current) drug therapy; Z88.8 Allergy status to other drugs, medicaments and biological substances; Z91.040 Latex allergy status
CPT/HCPCS: 36415; 71046; 80053; 83735; 84484; 85025; 85610; 85730; 93005; 99285

== ENCOUNTER → 2023-08-07 | Outpatient (CLI) | payer MEDICARE | END | disposition home or self-care (01) | LOC: RADXRMAIN 11:22 → MERGE 11:22 | PROVIDERS: ATTEND Family Medicine | DX: Z53.9 Procedure and treatment not carried out, unspecified reason (principal) ==

== ENCOUNTER → 2023-11-03 | Outpatient (CLI) | payer MEDICARE, BC ==
--- NOTE | 2023-11-03 13:38 | XR ---
EXAMINATION TYPE: XR humerus bilateral DATE OF EXAM: 11/03/2023 COMPARISON: None HISTORY: Bilateral arm pain TECHNIQUE: Two-view bilateral humeri FINDINGS: Left humerus: Left humeral head articulates with the glenoid. Left Acromioclavicular junction appears normal. No acute fractures are evident. Right humerus: Right humeral head articulates with the glenoid. Acromioclavicular junction appears n ormal. No acute fractures are evident. Soft tissues appear normal bilaterally. Elbow joint spaces are unremarkable. IMPRESSION: 1. No acute osseous abnormality bilateral Humerii.
== END | disposition home or self-care (01) ==
LOC: RADXRMAIN 11:10
PROVIDERS: ATTEND Family Medicine
DX: M13.819 Other specified arthritis, unspecified shoulder (principal); M79.601 Pain in right arm; M79.602 Pain in left arm